=== PATIENT | female | born 1960 | race Caucasian/White ===

== ENCOUNTER → 2017-01-23 | Outpatient (CLI) | payer OTHER ==
[2017-01-23 07:20] LABS: HEMATOCRIT 41.1 % (34.6-47.8); HEMOGLOBIN 13.9 g/dL (11.7-16.4); WHITE BLOOD COUNT 5.4 x10^3/uL (3.4-10)
[2017-01-23 07:33] LABS: ASPARTATE AMINO TRANSFERASE 18 U/L (15-37); BLOOD UREA NITROGEN 21 mg/dL (7-18)
== END | disposition home or self-care (01) ==
LOC: LAB 07:06
PROVIDERS: ATTEND Internal Medicine
DX: E78.5 Hyperlipidemia, unspecified (principal); E55.9 Vitamin D deficiency, unspecified; E04.1 Nontoxic single thyroid nodule; E03.9 Hypothyroidism, unspecified; Z91.09 Other allergy status, other than to drugs and biological substances
CPT/HCPCS: 36415; 80053; 80061; 82306; 84439; 84443; 85025

== ENCOUNTER → 2017-03-17 | Outpatient (CLI) | payer OTHER | END | disposition home or self-care (01) | LOC: CFH 15:53 | PROVIDERS: ATTEND Obstetrics & Gynecology Female Pelvic Medicine and Reconstructive Surgery | DX: Z12.31 Encounter for screening mammogram for malignant neoplasm of breast (principal); Z80.3 Family history of malignant neoplasm of breast | CPT/HCPCS: 77063; G0202 ==

== ENCOUNTER → 2017-05-28 | Outpatient (CLI) | payer OTHER ==
[~2017-05-28] MED LIST: OMNIPAQUE 350 MG/ML, 100ML BOTTLE ONE
== END | disposition home or self-care (01) ==
LOC: CFH 09:15
PROVIDERS: ATTEND Internal Medicine
DX: R10.32 Left lower quadrant pain (principal); Z90.710 Acquired absence of both cervix and uterus
CPT/HCPCS: 74178; 82565; Q9967

== ENCOUNTER → 2017-06-12 | Outpatient (CLI) | payer OTHER | LOC: CFH 07:03 | PROVIDERS: ATTEND Internal Medicine | DX: R16.0 Hepatomegaly, not elsewhere classified (principal) | CPT/HCPCS: 76705 ==

== ENCOUNTER 2018-07-23 14:27 | Outpatient (CLI) | payer BC, OTHER | END 2018-07-23 23:59 | disposition home or self-care (01) | LOC: CFH 14:27 | PROVIDERS: ATTEND Radiology Diagnostic Radiology | DX: Z12.31 Encounter for screening mammogram for malignant neoplasm of breast (principal) | CPT/HCPCS: 77063; 77067 ==

== ENCOUNTER 2018-10-20 04:31 | Emergency (ER) | payer BC, OTHER ==
[~2018-10-20] VITALS: Ht 170.2 cm; Wt 80.6 kg
[2018-10-20] MEDS ORDERED: KETOROLAC 30 MG/1 ML ONE (04:48)
--- NOTE | 2018-10-20 04:59 | NUR ---
PT HERE FOR RIGHT HIP/LEG PAIN. PAIN STARTED APPROX 4 HOURS AGO. VSS. PT MEDICATED FOR PAIN. CALL LIGHT IN REACH
[2018-10-20] MEDS ORDERED: KETOROLAC 30 MG/1 ML IM ONE (05:00)
[2018-10-20 06:00] VITALS: BP 145/81
--- NOTE | 2018-10-20 06:27 | NUR ---
Patient given discharge instructions and they have confirmed that they understand the instructions. Patient taken out by wheelchair
== END 2018-10-20 06:34 | disposition home or self-care (01) ==
LOC: ED 05:00
DX: M25.551 Pain in right hip (principal)
CPT/HCPCS: 73502; 96372; 99283; J1885

== ENCOUNTER 2019-12-02 15:11 | Outpatient (CLI) | payer BC | END 2019-12-02 23:59 | disposition home or self-care (01) | LOC: CFH 15:11 | PROVIDERS: ATTEND Internal Medicine | DX: Z12.31 Encounter for screening mammogram for malignant neoplasm of breast (principal) | CPT/HCPCS: 77063; 77067 ==

== ENCOUNTER 2020-05-06 11:21 | Emergency (ER) | payer BC ==
[~2020-05-06] VITALS: Ht 172.7 cm; Wt 73.8 kg
--- NOTE | 2020-05-06 12:20 | NUR ---
[facility] PT CONTACT. PT PRESENTS TO THE ED C/O DIZZINESS. PT STATES DIZZINESS BEGAN YESTERDAY AFTER RECEIVING HER PFIZER COVID VACCINATION. PT STATES THE DIZZINESS WAS MILD YESTERDAY BUT MUCH WORSE WHEN SHE WOKE UP THIS AM. PT DENIES N/V. PT SITTING UPRIGHT ON GURNEY, NAD, VSS. PT DENIES ANY NEEDS AT THIS TIME. CALL LIGHT AND PERSONAL BELONGINGS WITHIN REACH.
--- NOTE | 2020-05-06 13:19 | NUR ---
PT UP TO BATHROOM TO PROVIDE URINE SAMPLE.
[2020-05-06 13:57] LABS: MICROSCOPIC NOT IND
[2020-05-06 14:00] LABS: BASOPHILS % (AUTO) 1 % (0-1); EOSINOPHILS % (AUTO) 3 % (1-7); LYMPHOCYTES % (AUTO) 15 % (22-44); MEAN CORPUSCULAR HEMOGLOBIN 31.1 pg (27.0-34.8); MEAN CORPUSCULAR HGB CONC 33.4 g/dL (32.4-35.8); MEAN PLATELET VOLUME 9.7 fL (7.4-10.4); MONOCYTES % (AUTO) 5 % (2-9); NEUTROPHILS % (AUTO) 77 % (42-75); PLATELET COUNT 202 x10^3/uL (130-400); RED BLOOD COUNT 4.72 x10^6/uL (3.82-5.3); RED CELL DISTRIBUTION WIDTH 13.2 % (9.6-15.2)
[2020-05-06 14:01] LABS: MD NO
[2020-05-06 14:02] LABS: ALBUMIN 4.2 g/dL (3.4-5.0); ANION GAP 4 mmol/L (5-15); CALCIUM 9.4 mg/dL (8.5-10.1); CHLORIDE 108 mmol/L (98-107); CREATININE 0.85 mg/dL (0.55-1.02)
--- NOTE | 2020-05-06 14:04 | NUR ---
PT SITTING UPRIGHT ON GURNEY WATCHING TV, NAD, VSS. PT DENIES ANY NEEDS AT THIS TIME. CALL LIGHT AND PERSONAL BELONGINGS WITHIN REACH.
[2020-05-06 14:41] VITALS: BP 126/75
--- NOTE | 2020-05-06 14:45 | NUR ---
Patient given discharge instructions and they have confirmed that they understand the instructions. Patient ambulatory with steady gait.
== END 2020-05-06 14:47 | disposition home or self-care (01) ==
LOC: ED 13:33
DX: R42 Dizziness and giddiness (principal); R51.9 Headache, unspecified; R94.31 Abnormal electrocardiogram [ECG] [EKG]
CPT/HCPCS: 36415; 80048; 81003; 82040; 85025; 93005; 99284

== ENCOUNTER → 2020-10-25 | Outpatient (CLI) | payer BC | END | disposition home or self-care (01) | LOC: CVU 11:39 | PROVIDERS: ATTEND Internal Medicine Cardiovascular Disease | DX: I11.9 Hypertensive heart disease without heart failure (principal); I27.20 Pulmonary hypertension, unspecified | CPT/HCPCS: 93306 ==

== ENCOUNTER 2020-11-16 08:30 | Day surgery (SDC) | payer BC ==
[~2020-11-16] VITALS: Ht 170.2 cm; Wt 67.7 kg
[2020-11-16 10:17] LABS: BASOPHILS % (AUTO) 1 % (0-1); EOSINOPHILS % (AUTO) 3 % (1-7); LYMPHOCYTES % (AUTO) 12 % (22-44); MEAN CORPUSCULAR HEMOGLOBIN 31.7 pg (27.0-34.8); MEAN CORPUSCULAR HGB CONC 34.1 g/dL (32.4-35.8); MEAN PLATELET VOLUME 9.4 fL (7.4-10.4); MONOCYTES % (AUTO) 5 % (2-9); NEUTROPHILS % (AUTO) 79 % (42-75); PLATELET COUNT 186 x10^3/uL (130-400); RED BLOOD COUNT 4.62 x10^6/uL (3.82-5.3); RED CELL DISTRIBUTION WIDTH 13.1 % (9.6-15.2)
[2020-11-16 10:28] LABS: ANION GAP 4 mmol/L (5-15); CALCIUM 9.3 mg/dL (8.5-10.1); CHLORIDE 111 mmol/L (98-107); CREATININE 0.83 mg/dL (0.55-1.02)
[2020-11-16] MEDS ORDERED: PLEASE ENTER HEIGHT AND WEIGHT MC SCH (10:30)
[2020-11-16 10:37] VITALS: BP 143/90
[2020-11-16] MEDS ORDERED: LEVO112T2 PO (10:37)
[2020-11-16] MEDS ORDERED: VERAPAMIL 2.5 MG/ML, 2ML ONE (10:41)
[2020-11-16] MEDS ORDERED: HEPARIN 1,000 UNITS/ML, 10ML ONE (10:41)
[2020-11-16] MEDS ORDERED: MIDAZOLAM 1 MG/ML, 2ML ONE ×2 (10:41→11:19)
[2020-11-16] MEDS ORDERED: LIDOCAINE-MPF 1%, 5ML ONE (10:41)
[2020-11-16] MEDS ORDERED: FENTANYL PF 100 MCG/2ML ONE (10:41)
[2020-11-16] MEDS ORDERED: SODIUM CHLORIDE 0.9% 1,000 ML IV SCH (11:00)
== END 2020-11-16 13:56 | disposition home or self-care (01) ==
LOC: CACL 08:30
PROVIDERS: ATTEND Internal Medicine Cardiovascular Disease
DX: Z01.810 Encounter for preprocedural cardiovascular examination (principal); I35.0 Nonrheumatic aortic (valve) stenosis; I10 Essential (primary) hypertension; E78.5 Hyperlipidemia, unspecified; E03.9 Hypothyroidism, unspecified; Z79.890 Hormone replacement therapy
CPT/HCPCS: 36415; 80048; 85025; 93454; 99156; C1769; C1894; J1644; J2250; J3010; Q9967

== ENCOUNTER → 2020-11-28 | Outpatient (CLI) | payer BC ==
[~2020-11-28] MED LIST changes: +LEVO112T2 PO; +METOPROLOL 1 MG/ML, 5ML ONE; -OMNIPAQUE 350 MG/ML, 100ML BOTTLE ONE; +VISIPAQUE 320 MG/ML, 150ML BOTTLE ONE
== END | disposition home or self-care (01) ==
LOC: CVU 09:19
PROVIDERS: ATTEND Internal Medicine Cardiovascular Disease
DX: Z01.810 Encounter for preprocedural cardiovascular examination (principal); I65.23 Occlusion and stenosis of bilateral carotid arteries; E78.5 Hyperlipidemia, unspecified; I10 Essential (primary) hypertension; I35.8 Other nonrheumatic aortic valve disorders; E04.1 Nontoxic single thyroid nodule
CPT/HCPCS: 71275; 74174; 93880; Q9967